=== PATIENT | female | born 1975 | race Caucasian/White ===

== ENCOUNTER 2023-10-20 22:03 | Emergency (ER) | payer MEDICAID ==
[~2023-10-20] VITALS: Ht 157.5 cm; Wt 108.9 kg
[2023-10-20 22:05] VITALS: BP_SYST 118; PULSE 80; RESP 20; TEMP 98.1; O2SAT 100
[2023-10-20] MEDS ORDERED: PRED20TA PO (22:40)
[2023-10-20] MEDS ORDERED: ALBMDI INH (22:40)
[2023-10-20 23:15] VITALS: BP_SYST 118; PULSE 80; RESP 20; TEMP 98.1; O2SAT 100
== END 2023-10-20 23:12 | disposition home or self-care (01) ==
LOC: SED 22:03
DX: J45.909 Unspecified asthma, uncomplicated (principal); R06.02 Shortness of breath; Z79.899 Other long term (current) drug therapy
CPT/HCPCS: 99281